=== PATIENT | female | born 1955 | race Caucasian/White ===

== ENCOUNTER → 2016-09-17 | Outpatient (CLI) | payer OTHER | LOC: FIMAGING 18:43 | PROVIDERS: ATTEND Neurological Surgery | DX: M50.30 Other cervical disc degeneration, unspecified cervical region (principal); M48.02 Spinal stenosis, cervical region; M99.71 Connective tissue and disc stenosis of intervertebral foramina of cervical region; M54.5 Low back pain ==

== ENCOUNTER → 2017-07-14 | Outpatient (CLI) | payer OTHER | LOC: FIMAGING 10:46 | PROVIDERS: ATTEND Obstetrics & Gynecology Gynecology | DX: Z12.31 Encounter for screening mammogram for malignant neoplasm of breast (principal); Z80.3 Family history of malignant neoplasm of breast ==

== ENCOUNTER 2017-10-29 12:49 | Emergency (ER) | payer OTHER ==
--- NOTE | 2017-10-29 13:00 | EDPHY ---
HPI/HX/ROS/PE/MDM Narrative: CHIEF COMPLAINT: Left temporal swelling HISTORY OF PRESENT ILLNESS: This patient is a non-anticoagulated 62 year old female with history of headaches and cervical spine problems complaining of recurrent swelling lateral to her left eye. These episodes are associated with some discomfort and headache , and have been ongoing since 2013. Her current episode began Friday and has mostly resolved today. She continues to have a headache, but endorses chronic headaches since childhood and her current headache is similar to theses. She denies any rash, new numbness or paresthesias in her extremities or face, speech difficulty, or diplopia. Yesterday, the patient had a near syncopal episode after she woke and stood up from bed with associated diaphoresis, nausea, and tinnitus. These symptoms resolved within 30 seconds. She denies associated chest pain, shortness of breath, or vomiting. The patient is concerned regarding temporal arteritis or other vascular concerns. She has immediate family of stroke and aneurysm at a similar age including her parents and brothers. Her daughter was recently diagnosed with Debbie-Danlos syndrome. Patient has no known personal history of hypertension, diabetes, or coronary artery disease. No fever, chills, chest pain , shortness of breath, palpitations, vomiting, diarrhea, or urinary complaints. REVIEW OF SYSTEMS: Aside from elements discussed in the HPI, a comprehensive 10-point review of systems was reviewed and is negative. PAST MEDICAL HISTORY: Headaches. Sam's s/p partial thyroidectomy ( Synthroid). Cervical spine 'problems'. Valacyclovir. SOCIAL HISTORY: . Works for [employer]. PCP Dr. Napier. VITAL SIGNS: Reviewed by me GENERAL: Well-developed, well-nourished, resting comfortably in no respiratory distress. HEENT: Atraumatic. Tenderness over temporal artery, no swelling or rash. Eyes: Left upper eyelid slightly edematous. No icterus, no injection. Mouth: moist mucous membranes. No erythema or lesions. Neck: supple with no adenopathy. LUNGS: Clear to auscultation bilaterally, no wheezes, rhonchi or rales. CARDIAC: Regular rate and rhythm, no rubs, murmurs or gallops. ABDOMEN: Soft, nontender, nondistended, bowel sounds normal. BACK: No CVA tenderness. EXTREMITIES: No trauma. No edema. Range of motion is normal throughout. NEURO: Alert and oriented x3, cranial nerves are intact throughout, normal motor , normal sensation. SKIN: Warm and dry, no rash. PSYCHIATRIC: Normal mentation, no agitation. Portions of this note were transcribed by a medical record coder. I personally performed a history, physical exam, medical decision making, and confirmed accuracy of information the transcribed note. ED Course: This 62 y/o female presents with left temporal discomfort onset Friday, now largely resolved. I do not appreciate any swelling or rash lateral to left eye. She is neurologically intact on exam. IV established. Plan for EKG, labs including CBC, chemistries, troponin, CRP, ESR, coag panel. Plan for CT head to r/o acute processes. The patient declines any pain medication for headache at this time. Reviewed past medical records including MRI brain from 02/01/2010, read by Dr. Ng, radiologist. Normal MRI of the brain, with no atrophy or evidence for vascular disease. EKG shows sinus rhythm. 14:[address] Lau, radiologist. CT head negative for acute processes. Significant degenerative disc disease noted to cervical spine, which the patient is aware of. 14:20 Reviewed laboratory results. CRP and ESR within normal limits. Troponin negative. Laboratory studies otherwise unremarkable. 14:28 Reassessed patient. Plan to discharge home in good condition with prescription for Prednisone 60mg and referral to general surgery for further evaluation. Return precautions discussed. She is comfortable with this plan. MDM: 12-LEAD EKG: Please see the full report in [employer] [facility]. My interpretation: Sinus rhythm Differential diagnosis considered included headache, migraine, temporal arteritis, tension headache, syncope from dehydration, vasovagal syncope, cardiac causes. stroke. - Data Points Imaging: Discussed imaging studies w/ application development consultant Radiologist Laboratory Results: Laboratory Results 10/29/17 13:37 10/29/17 13:37 Medications Given: Discontinued Medications Sodium Chloride (Ns) 1,000 mls @ 0 mls/hr IV ONCE ONE; Wide Open PRN Reason: Protocol Stop: 10/29/17 13:16 Last Admin: 10/29/17 13:30 Dose: 1,000 mls Prednisone (Prednisone) 60 mg PO EDNOW ONE Stop: 10/29/17 14:12 Last Admin: 10/29/17 14:22 Dose: 60 mg General Initial Vital Signs: Initial Vital Signs Temperature (C) 36.5 C 10/29/17 12:54 Heart Rate 80 10/29/17 12:54 Respiratory Rate 18 10/29/17 12:54 Blood Pressure 161/90 H 10/29/17 12:54 O2 Sat (%) 96 10/29/17 12:54 O2 Delivery Mode Room Air Allergies/Adverse Reactions: Sulfa (Sulfonamide Antibiotics) Allergy (Verified 10/29/17 12:53) Hives Home Medications: Medication Instructions Recorded Aleve 02/27/16 Estrace Vaginal (*) 02/27/16 Excedrin Tablet (*) 02/27/16 Synthroid 02/27/16 Tylenol 02/27/16 predniSONE 60 mg PO DAILY #15 tab 10/29/17 Departure - Departure Disposition: Home, Routine, Self-Care Clinical Impression: Headache, Concern for temporal arteritis Condition: Good Instructions: Acute Headache (ED) Additional Instructions: 1. Follow up with general surgery for further evaluation of symptoms in 2-3 days. We have referred you to our surgeon contact lens fitter. Please call his office for an appointment. 2. Take Prednisone 60mg as prescribed. 3. Return to the emergency department for fever, severe headache, chest pain, shortness of breath, vomiting, difficulty with speech, numbness or tingling in your face or extremities, or other concerns. I also recommend early follow up with Dr. Georgia roach with respect to your concerns regarding vascular/collagen abnormalities Referrals: Michael Molina MD [Medical Doctor] - As per Instructions Edwin Napier MD [Medical Doctor] - As per Instructions Prescriptions: predniSONE 60 mg PO DAILY #15 tab Report Scribed for: Rut Mccarthy Report Scribed by: Chantal Erazo Date of Report: 10/29/17 Time of Report: 13:11
[2017-10-29] MEDS ORDERED: NS 1,000 ML IV ONE (13:15)
--- NOTE | 2017-10-29 13:22 | CPEKG ---
Heart Rate: 69 RR Interval: 870 P-R Interval: 156 QRSD Interval: 78 QT Interval: 392 QTC Interval: 420 P Cammal: 59 QRS Cammal: 32 T Wave Cammal: 47 EKG Severity - NORMAL ECG - EKG Impression: SINUS RHYTHM Electronically Signed By: Tamika Alston 29-Oct-2017 15:03:28
[2017-10-29 13:49] LABS: PLATELET COUNT 231 10^3/uL (150-400)
[2017-10-29 13:54] LABS: INR 0.94 (0.83-1.16); PROTIME(PATIENT) 12.8 SEC (12.0-15.0)
[2017-10-29] MEDS ORDERED: predniSONE 20 MG TAB PO ONE (14:11)
[2017-10-29 14:46] VITALS: BP 140/94
== END 2017-10-29 14:51 | disposition home or self-care (01) ==
DX: R51 Headache (principal); E86.9 Volume depletion, unspecified
CPT/HCPCS: J7512

== ENCOUNTER 2017-12-08 12:20 | Emergency (ER) | payer OTHER ==
--- NOTE | 2017-12-08 13:04 | EDPHY ---
HPI/HX/ROS/PE/MDM Narrative: CHIEF COMPLAINT: Right eye swelling, dizziness. HISTORY OF PRESENT ILLNESS: This patient is a non-anticoagulated 62 year old female with history of chronic headaches complaining of right eye swelling and subconjunctival hemorrhage. She was evaluated for similar symptoms in this ED six weeks ago. Her current symptoms began yesterday. She notes "engorgement" in her right eye and right lutheran which was painful this morning. She denies any recent trauma. She had a recent biopsy for temporal arteritis which was negative. She took a 5 day course of Prednisone 60mg after her initial evaluation, and does not feel her symptoms have changed meaningfully other than that she notes more frequent dizziness, which she describes as feeling "foggy". This morning, she felt dizzy and nauseous. She presents as she is concerned regarding "extensive" family history of stroke. She has not followed up with a neurologist recently regarding her headaches and does not note any recent changes in her headaches. She denies diplopia or blurred vision. No numbness or paresthesias in her extremities. No personal diagnosed history of atrial fibrillation, hypertension , diabetes. She endorses early hyperlipidemia but is not medicated. No fever, chills, cough or cold symptoms, chest pain, shortness of breath, palpitations, vomiting, diarrhea, urinary complaints. REVIEW OF SYSTEMS: Aside from elements discussed in the HPI, a comprehensive 10-point review of systems was reviewed and is negative. PAST MEDICAL HISTORY: Chronic headaches. C-spine degenerative disease. Sam 's (Synthroid). Valacyclovir. SOCIAL HISTORY: . Works for [employer]. Daughter at bedside. PCP: Dr. Napier. VITAL SIGNS: Reviewed by me GENERAL: Well-developed, well-nourished, resting comfortably in no respiratory distress. HEENT: Atraumatic. Mouth: moist mucous membranes. No erythema or lesions. Neck : supple with no adenopathy. No swelling or erythema over the temporal arteries. No tenderness over arteries. Visual Acuity: noted from Nurse's notes. Focused examination of the right eye. Eyelid: No edema, erythema or swelling. Pupils: 4mm. Round and reactive to light. EOMI. Conjunctivae: Subconjunctival hemorrhage on lateral right, no discharge. Anterior chamber: Normal, no hyphema or hypopyon. Skin: No proptosis, no periorbital erythema or swelling, no vesicles. Eyes: No icterus, no injection. LUNGS: Clear to auscultation bilaterally, no wheezes, rhonchi or rales. CARDIAC: Regular rate and rhythm, no rubs, murmurs or gallops. NEURO: Alert and oriented, cranial nerves 2-12 are intact. Extraocular movements intact. Pupils equal round reactive to light. Finger-nose normal. Sensation normal throughout. Motor strength 5/5 throughout. Gait normal. SKIN: Warm and dry, no rash. PSYCHIATRIC: Normal mentation, no agitation. Portions of this note were transcribed by a biomedical field service engineer. I personally performed a history, physical exam, medical decision making, and confirmed accuracy of information the transcribed note. ED Course: 62 y/o female presents with headache and right eye swelling and subconjunctival hemorrhage. At the patient's evaluation 10/29/17, she had a negative CT head. CRP and ESR were within normal limits at that time. She was referred to have a temporal lobe biopsy which was done and was negative. The patient is curious whether her course of Prednisone may have resulted in a false negative for her temporal arteritis biopsy. After reviewing literature on Up To Date, I reassured the patient that this is unlikely. I suggested she follow up with her primary care physician for further evaluation of her frequent headaches and concerns regarding stroke risk. Today's presentation demonstrates subconjunctival hemorrhage in the right eye without other concerning symptoms. 14:00 Reassessed patient. I further encouraged her to follow up with her PCP or neurologist regarding ongoing symptoms. Plan to discharge home in good condition. She will try meclizine to help relieve dizziness. Follow up and return precautions discussed. The patient is comfortable with this plan. MDM: Differential diagnosis for the patient's presenting complaints includes corneal abrasion, conjunctivitis, iritis, hordeolum, chalazion, subconjunctival injection, cellulitis, periorbital cellulitis, glaucoma, and contusion. General Time Seen by Provider: 12/08/17 13:00 Initial Vital Signs: Initial Vital Signs Temperature (C) 36.6 C 12/08/17 12:28 Heart Rate 84 12/08/17 12:28 Respiratory Rate 16 12/08/17 12:28 Blood Pressure 147/87 H 06/04/18 12:28 O2 Sat (%) 95 12/08/17 12:28 O2 Delivery Mode Room Air Allergies/Adverse Reactions: Sulfa (Sulfonamide Antibiotics) Allergy (Verified 12/08/17 12:27) Hives Home Medications: Medication Instructions Recorded Aleve 02/27/16 Estrace Vaginal (*) 02/27/16 Excedrin Tablet (*) 02/27/16 Synthroid 02/27/16 Tylenol 02/27/16 Melatonin 1 mg 12/08/17 Departure - Departure Disposition: Home, Routine, Self-Care Clinical Impression: Subconjunctival hemorrhage of right eye Headache Qualifiers: Headache type: unspecified Headache chronicity pattern: chronic headache Intractability: not intractable Qualified Code(s): R51 - Headache Condition: Good Instructions: Subconjunctival Hemorrhage (ED) Additional Instructions: 1. Return to the emergency department if you develop eye pain, changes in your vision, or white or yellow discharge from the eye. 2. Follow up with your primary care provider regarding management of your cholesterol. You may also wish to discuss carotid ultrasound or other next steps for evaluating stroke risk with your primary care provider. 3. If you continue to have headaches and temporal pain, please discuss this with your primary care physician or follow up with a neurologist. We have provided a referral to our neurologist net application architect. 4. You can try meclizine, available over the counter, to see if this helps to resolve your dizziness. Referrals: Edwin Napier MD [Primary Care Provider] - As per Instructions Saw Paris MD [Medical Doctor] - As per Instructions Report Scribed for: Rut Mccarthy Report Scribed by: Chantal Erazo Date of Report: 12/08/17 Time of Report: 13:30
[2017-12-08 13:54] VITALS: BP 143/106
== END 2017-12-08 14:09 | disposition home or self-care (01) ==
DX: H11.31 Conjunctival hemorrhage, right eye (principal)

== ENCOUNTER → 2018-07-15 | Outpatient (CLI) | payer OTHER | END | disposition home or self-care (01) | LOC: FIMAGING 16:02 | PROVIDERS: ATTEND Obstetrics & Gynecology Gynecology | DX: Z12.31 Encounter for screening mammogram for malignant neoplasm of breast (principal); Z80.3 Family history of malignant neoplasm of breast; Z98.82 Breast implant status ==

== ENCOUNTER → 2018-10-05 | Outpatient (CLI) | payer OTHER | LOC: FIMAGING 07:20 | PROVIDERS: ATTEND Radiology Diagnostic Radiology | DX: I78.1 Nevus, non-neoplastic (principal) ==